=== PATIENT | male | born 1980 | race Caucasian/White ===

== ENCOUNTER 2017-03-08 08:12 | Day surgery (SDC) | payer OTHER ==
[2017-02-28 15:27] VITALS: Ht 172.7 cm; Wt 103.6 kg
[2017-03-08] VITALS (8 sets, daily range): BP systolic 103–127; BP diastolic 65–77; PULSE 61–72; RESP 12–22
[~2017-03-08] VITALS: Ht 172.7 cm; Wt 103.6 kg
[~2017-03-08 08:12] MED LIST: CEFAZOLIN 1 GM INJ ONE; CEFAZOLIN 2 GM/50 ML (PMX) 50 ML IVPB SCH; SOD CHLORIDE 0.9% 1,000 ML IV SCH
[2017-03-08] MEDS ORDERED: LIDOCAINE 2% (SDV) 5 ML INJ ONE (12:47)
[2017-03-08] MEDS ORDERED: PROPOFOL 20 ML ONE (12:47)
[2017-03-08] MEDS ORDERED: MEPERIDINE 100 MG INJ ONE (13:04)
[2017-03-08] MEDS ORDERED: BUPIVACAINE 0.25%/EPI (SDV) 30 ML INJ ONE (13:20)
[2017-03-08] MEDS ORDERED: OXYCODONE/ACETAMINOPHEN (5/325) TAB PO PRN ×2 (13:30)
[2017-03-08] MEDS ORDERED: ONDANSETRON 4 MG INJ IV PRN (13:30)
[2017-03-08] MEDS ORDERED: DIPHENHYDRAMINE 50 MG INJ IV PRN (13:30)
[2017-03-08] MEDS ORDERED: METOCLOPRAMIDE 10 MG INJ IV PRN (13:30)
[2017-03-08] MEDS ORDERED: LABETALOL HCL 20MG INJ IV PRN (13:30)
[2017-03-08] MEDS ORDERED: EPHEDrine SULFATE 50 MG/5 ML SYG IV PRN (13:30)
[2017-03-08] MEDS ORDERED: MIDAZOLAM 1 MG/ML 2 ML INJ IV PRN (13:30)
[2017-03-08] MEDS ORDERED: MEPERIDINE 25 MG INJ IV PRN (13:30)
[2017-03-08] MEDS ORDERED: morphine (1 MG/ML) 10ML SYRINGE IV PRN ×2 (13:30)
[2017-03-08] MEDS ORDERED: FENTAnyl 50 MCG/ML VIAL IV PRN ×2 (13:30)
[2017-03-08] MEDS ORDERED: hydrALAzine 20 MG INJ IV PRN (13:30)
== END 2017-03-08 14:51 | disposition home or self-care (01) ==
LOC: EDSEX 08:12 → SDS 08:12
PROVIDERS: ATTEND Surgery Surgical Oncology
DX: D17.24 Benign lipomatous neoplasm of skin and subcutaneous tissue of left leg (principal); E66.9 Obesity, unspecified; Z68.34 Body mass index [BMI] 34.0-34.9, adult; Z87.891 Personal history of nicotine dependence
CPT/HCPCS: 14020; 88307; J0690; Z7512; Z7610; J2175